=== PATIENT | female | born 1940 | race Caucasian/White ===

== ENCOUNTER → 2017-02-17 | Outpatient (CLI) | payer MEDICARE, BC ==
[2017-02-17 08:58] LABS: CH 29.6; CHCM 33.3; HCT 52.2 % (34.0-46.0); HDW 2.62; HGB 17.4 gm/dL (11.4-16.0); MCH 29.8 pg (25.0-35.0); MCHC 33.3 g/dL (31.0-37.0); MCV 89.4 fL (80.0-100.0); RBC 5.84 m/uL (3.80-5.40); RDW 13.7 % (11.5-15.5); WBC 5.4 k/uL (3.8-10.6)
[2017-02-17 10:45] LABS: ALT 48 U/L (9-52); AST 44 U/L (14-36); Alkaline Phosphatase 67 U/L (38-126); Anion Gap 9 mmol/L; Blood Urea Nitrogen 15 mg/dL (7-17); Calcium 9.6 mg/dL (8.4-10.2); Carbon Dioxide 25 mmol/L (22-30); Chloride 106 mmol/L (98-107); Cholesterol 222 mg/dL (<200); Glucose 92 mg/dL (74-99); HDL Cholesterol 73 mg/dL (40-60); Non-African American GFR(MDRD) >60 (>60 ml/min/1.73 sqM); Potassium 4.5 mmol/L (3.5-5.1); Sodium 140 mmol/L (137-145); Total Bilirubin 0.9 mg/dL (0.2-1.3); Total Protein 7.6 g/dL (6.3-8.2); Triglycerides 135 mg/dL (<150)
== END | disposition home or self-care (01) ==
LOC: LABWHC1 08:17
PROVIDERS: ATTEND Internal Medicine
DX: Z00.00 Encounter for general adult medical examination without abnormal findings (principal); I10 Essential (primary) hypertension; Z13.220 Encounter for screening for lipoid disorders; Z13.29 Encounter for screening for other suspected endocrine disorder
CPT/HCPCS: 36415; 80053; 80061; 84439; 84443; 85027

== ENCOUNTER → 2017-03-23 | Outpatient (CLI) | payer MEDICARE, BC ==
[2017-03-23 14:34] LABS: CH 29.3; HCT 46.8 % (34.0-46.0); HDW 2.52; HGB 15.1 gm/dL (11.4-16.0); MCH 29.7 pg (25.0-35.0); MCHC 32.2 g/dL (31.0-37.0); MCV 92.2 fL (80.0-100.0); Mean Platelet Volume 7.3; RBC 5.08 m/uL (3.80-5.40); RDW 13.6 % (11.5-15.5); WBC 6.9 k/uL (3.8-10.6)
[2017-03-23 15:00] LABS: ALT 29 U/L (9-52); AST 36 U/L (14-36)
== END | disposition home or self-care (01) ==
LOC: LABWHC1 14:05
PROVIDERS: ATTEND Internal Medicine
DX: D75.1 Secondary polycythemia (principal)
CPT/HCPCS: 36415; 84450; 84460; 85027

== ENCOUNTER → 2018-02-23 | Outpatient (CLI) | payer MEDICARE, BC ==
[2018-02-23 08:56] LABS: Basophils % (A) 1 %; Eosinophils # (A) 0.1 k/uL (0-0.7); Eosinophils % (A) 2 %; HCT 46.8 % (34.0-46.0); Lymphocytes # (A) 1.6 k/uL (1.0-4.8); Lymphocytes % (A) 26 %; MCH 28.3 pg (25.0-35.0); MCV 88.5 fL (80.0-100.0); Mean Platelet Volume 7.6; Monocytes # (A) 0.4 k/uL (0-1.0); Monocytes % (A) 6 %; Neutrophils # (A) 3.9 k/uL (1.3-7.7); Neutrophils % (A) 64 %; Platelet Count 218 k/uL (150-450); RBC 5.28 m/uL (3.80-5.40); WBC 6.2 k/uL (3.8-10.6)
[2018-02-23 09:21] LABS: ALT 28 U/L (9-52); AST 26 U/L (14-36); Albumin 3.9 g/dL (3.5-5.0); Alkaline Phosphatase 69 U/L (38-126); Anion Gap 10 mmol/L; Blood Urea Nitrogen 16 mg/dL (7-17); Calcium 9.4 mg/dL (8.4-10.2); Carbon Dioxide 28 mmol/L (22-30); Chloride 104 mmol/L (98-107); Cholesterol 190 mg/dL (<200); Glucose 94 mg/dL (74-99); HDL Cholesterol 68 mg/dL (40-60); LDL Cholesterol,Calculated 98 mg/dL (0-99); Potassium 4.3 mmol/L (3.5-5.1); Sodium 142 mmol/L (137-145); Total Bilirubin 0.6 mg/dL (0.2-1.3); Total Protein 6.6 g/dL (6.3-8.2); Triglycerides 120 mg/dL (<150)
[2018-02-23 09:37] LABS: T4, Free (Free Thyroxine) 1.28 ng/dL (0.78-2.19)
== END | disposition home or self-care (01) ==
LOC: LABWHC1 08:17
PROVIDERS: ATTEND Internal Medicine
DX: Z00.00 Encounter for general adult medical examination without abnormal findings (principal); I10 Essential (primary) hypertension; Z13.228 Encounter for screening for other metabolic disorders; Z13.29 Encounter for screening for other suspected endocrine disorder; Z13.220 Encounter for screening for lipoid disorders
CPT/HCPCS: 36415; 80053; 80061; 84439; 84443; 85025

== ENCOUNTER → 2018-04-17 | Outpatient (CLI) | payer MEDICARE, BC ==
[2018-04-17 11:40] LABS: T4, Free (Free Thyroxine) 1.06 ng/dL (0.78-2.19)
== END | disposition home or self-care (01) ==
LOC: LABWHC1 10:33
PROVIDERS: ATTEND Internal Medicine
DX: E03.9 Hypothyroidism, unspecified (principal)
CPT/HCPCS: 36415; 84439; 84443

== ENCOUNTER → 2019-02-26 | Outpatient (CLI) | payer MEDICARE, BC ==
[2019-02-26 09:42] LABS: Basophils # (A) 0.1 k/uL (0-0.2); Basophils % (A) 1 %; Eosinophils # (A) 0.1 k/uL (0-0.7); Eosinophils % (A) 2 %; HCT 47.8 % (34.0-46.0); HGB 16.1 gm/dL (11.4-16.0); Lymphocytes # (A) 1.3 k/uL (1.0-4.8); Lymphocytes % (A) 22 %; MCH 30.1 pg (25.0-35.0); MCHC 33.7 g/dL (31.0-37.0); MCV 89.4 fL (80.0-100.0); Mean Platelet Volume 9.4; Monocytes # (A) 0.5 k/uL (0-1.0); Monocytes % (A) 8 %; Neutrophils # (A) 3.6 k/uL (1.3-7.7); Neutrophils % (A) 64 %; Platelet Count 196 k/uL (150-450); RBC 5.35 m/uL (3.80-5.40); RDW 14.5 % (11.5-15.5); WBC 5.6 k/uL (3.8-10.6)
[2019-02-26 16:19] LABS: Albumin 4.1 g/dL (3.80-4.90); Albumin/Globulin Ratio 1.86 (1.60-3.17); Anion Gap 8.6 mmol/L (4.00-12.00); Calcium 8.9 mg/dL (8.7-10.3); Carbon Dioxide 25.4 mmol/L (21.6-31.8); Globulin 2.2 g/dL (1.6-3.3); LDL Cholesterol,Calculated 119.4 mg/dL (0.0-131.0); Potassium 4.2 mmol/L (3.5-5.5); Total Bilirubin 0.6 mg/dL (0.2-1.2); Total Protein 6.3 g/dL (6.2-8.2); VLDL Calculation 16.6 mg/dL (5.00-40.00)
== END | disposition home or self-care (01) ==
LOC: LABWHC1 07:30
PROVIDERS: ATTEND Internal Medicine
DX: Z00.01 Encounter for general adult medical examination with abnormal findings (principal); I10 Essential (primary) hypertension; Z13.220 Encounter for screening for lipoid disorders
CPT/HCPCS: 36415; 80053; 80061; 85025

== ENCOUNTER → 2021-03-27 | Outpatient (CLI) | payer MEDICARE, BC ==
--- NOTE | 2021-03-27 10:40 | XR ---
EXAM TYPE: LUMBAR SPINE X RAY SERIES COMPARISON: NONE HISTORY: Pain TECHNIQUE: 4 views are submitted. FINDINGS: Alignment is anatomic. The pedicles are intact. The transverse processes are intact. There is mult ilevel degenerative disc disease most marked at L4-5 with multilevel facet arthropathy. Grade 1 anter olisthesis L4 on L5. IMPRESSION: 1. Multilevel moderate to severe degenerative disc disease with grade 1 anterolisthesis L4 on L5.
[2021-03-27 14:42] LABS: Basophils # (A) 0.07 X 10*3/uL (0.00-0.10); Basophils % (A) 0.9 %; Eosinophils % (A) 1.3 %; HCT 48.5 % (37.2-46.3); HGB 15.4 g/dL (12.0-15.0); Lymphocytes % (A) 27.7 %; MCH 29.1 pg (27.0-32.0); MCHC 31.8 g/dL (32.0-37.0); MCV 91.7 fL (80.0-97.0); Mean Platelet Volume 10.6 fL (9.5-12.2); Monocytes # (A) 0.69 X 10*3/uL (0.20-1.00); Monocytes % (A) 9.1 %; Neutrophils # (A) 4.62 X 10*3/uL (1.80-7.70); Neutrophils % (A) 60.9 %; Platelet Count 206 X 10*3/uL (140-440); RBC 5.29 X 10*6/uL (4.10-5.20); RDW 13.7 % (11.5-14.5); WBC 7.59 X 10*3/uL (4.50-10.00)
[2021-03-27 17:44] LABS: African American GFR (CKD) 99.8 (60.0-200.0); Albumin 4.2 g/dL (3.80-4.90); Albumin/Globulin Ratio 1.75 (1.60-3.17); BUN/Creat Ratio 26.67 Ratio (12.00-20.00); Globulin 2.4 g/dL (1.6-3.3); Non-African American GFR(CKD) 86.1 (60.0-200.0); Potassium 4.2 mmol/L (3.5-5.5); Total Bilirubin 0.7 mg/dL (0.2-1.2); Total Protein 6.6 g/dL (6.2-8.2)
[2021-03-27 17:45] LABS: Chol/HDL Ratio 2.98; LDL Cholesterol,Calculated 100.6 mg/dL (0.0-131.0); VLDL Calculation 22.4 mg/dL (5.00-40.00)
== END | disposition home or self-care (01) ==
LOC: LABWHC1 09:34
PROVIDERS: ATTEND Internal Medicine
DX: Z00.01 Encounter for general adult medical examination with abnormal findings (principal); Z13.220 Encounter for screening for lipoid disorders; I10 Essential (primary) hypertension; R94.6 Abnormal results of thyroid function studies; M51.36 Other intervertebral disc degeneration, lumbar region; M43.16 Spondylolisthesis, lumbar region
CPT/HCPCS: 36415; 72110; 80053; 80061; 82306; 84443; 85025

== ENCOUNTER → 2021-08-07 | Outpatient (CLI) | payer MEDICARE, BC ==
--- NOTE | 2021-08-07 17:00 | US ---
EXAMINATION TYPE: US pelvic complete DATE OF EXAM: 08/07/2021 COMPARISON: NONE CLINICAL HISTORY: N95.0 POSTMENOPAUSAL BLEEDING. Pt states recent episode of light vaginal bleeding- pt also states recent diagnosis of UTI, currently on antibiotics TECHNIQUE: Transabdominal (TA). Transabdominal sonographic images of the pelvis were acquired. Date of LMP: late 50's EXAM MEASUREMENTS: Uterus: 7.4 x 3.1 x 4.7 cm Endometrial Stripe: 0.4 cm Right Ovary: 1.8 x 0.9 x 1.6 cm Left Ovary: 1.5 x 1.3 x 1.5 cm 1. Uterus: Anteverted Heterogeneous, peripheral calcifications, Nabothian cyst= 1.1 cm 2. Endometrium: wnl 3. Right Ovary: wnl 4. Left Ovary: wnl 5. Bilateral Adnexa: wnl 6. Posterior cul-de-sac: wnl IMPRESSION: Uterine myometrium is heterogenous with peripheral calcification seen which may reflect small leiomyo matous change.
== END | disposition home or self-care (01) ==
LOC: RADUSWWP 16:15
PROVIDERS: ATTEND Internal Medicine
DX: N85.8 Other specified noninflammatory disorders of uterus (principal)
CPT/HCPCS: 76856

== ENCOUNTER → 2021-09-07 | Outpatient (CLI) | payer MEDICARE, BC ==
--- NOTE | 2021-09-07 15:15 | US ---
EXAMINATION TYPE: US transvaginal DATE OF EXAM: 09/07/2021 COMPARISON: 08/07/2021 CLINICAL HISTORY: 81-year-old female N95.0 POST MENOPAUSAL BLEEDING. Light brown spotting. TECHNIQUE: Transvaginal (TV). Date of LMP: REVENUE ACCOUNTING MANAGER FINDINGS: EXAM MEASUREMENTS: Uterus: 5.4 x 4.0 x 2.0 cm Endometrial Stripe: 0.2 cm 1. Uterus: Anteverted. Extensive myometrial vascular calcifications. 2. Endometrium: wnl 3. Right Ovary: Obscured by overlying bowel gas 4. Left Ovary: Obscured by overlying bowel gas 5. Bilateral Adnexa: Prominent vessels seen 6. Posterior cul-de-sac: no free fluid seen 7. Cervix- hypoechoic lesion with internal echoes = 1.2 x 1.2 x 0.7 cm likely debris-filled cervical nabothian cyst. IMPRESSION: 1. Neither ovary could be visualized. 2. Endometrial stripe measuring 2 mm. 3. Hypoechoic lesion within the cervix measuring 1.2 cm most likely represents a cervical nabothian c yst filled with debris. Consider either follow-up, direct visualization and/or Pap smear to exclude o ther lesion.
== END | disposition home or self-care (01) ==
LOC: RADUSWWP 10:07
PROVIDERS: ATTEND Internal Medicine
DX: N88.8 Other specified noninflammatory disorders of cervix uteri (principal); N95.0 Postmenopausal bleeding
CPT/HCPCS: 76830

== ENCOUNTER → 2023-02-01 | Outpatient (CLI) | payer MEDICARE, BC ==
[2023-02-01 10:34] LABS: Basophils % (A) 0 %; Eosinophils # (A) 0.1 k/uL (0-0.7); Eosinophils % (A) 2 %; HCT 50.3 % (34.0-46.0); HGB 16.8 gm/dL (11.4-16.0); Lymphocytes # (A) 1.4 k/uL (1.0-4.8); Lymphocytes % (A) 20 %; MCH 30.1 pg (25.0-35.0); MCHC 33.4 g/dL (31.0-37.0); MCV 90.2 fL (80.0-100.0); Mean Platelet Volume 9.1; Monocytes # (A) 0.4 k/uL (0-1.0); Monocytes % (A) 6 %; Neutrophils % (A) 70 %; Platelet Count 194 k/uL (150-450); RBC 5.58 m/uL (3.80-5.40); RDW 13.7 % (11.5-15.5); WBC 7.1 k/uL (3.8-10.6)
[2023-02-01 16:47] LABS: African American GFR (CKD) 95.1 (60.0-200.0); Anion Gap 11.6 mmol/L (10.00-18.00); BUN/Creat Ratio 13.41 Ratio (12.00-20.00); Blood Urea Nitrogen 8.9 mg/dL (9.0-27.0); Calcium 9.5 mg/dL (8.7-10.3); Carbon Dioxide 24.3 mmol/L (20.0-27.5); Non-African American GFR(CKD) 82.1 (60.0-200.0); Potassium 4.6 mmol/L (3.5-5.5)
== END | disposition home or self-care (01) ==
LOC: LABWHC1 08:23
PROVIDERS: ATTEND Internal Medicine
DX: Z01.810 Encounter for preprocedural cardiovascular examination (principal); R94.31 Abnormal electrocardiogram [ECG] [EKG]
CPT/HCPCS: 36415; 80048; 85025; 93005

== ENCOUNTER → 2023-04-20 | Outpatient (CLI) | payer MEDICARE, BC ==
[2023-04-20 16:21] LABS: ALT 23 U/L (8-44); AST 21 U/L (13-35); Albumin 4.1 d/dL (3.8-4.9); Albumin/Globulin Ratio 1.78 Ratio (1.60-3.17); Alkaline Phosphatase 76 U/L (41-126); Blood Urea Nitrogen 11.1 mg/dL (9.0-27.0); Calcium 9.4 mg/dL (8.7-10.3); Carbon Dioxide 23.7 mmol/L (21.6-31.8); Chloride 103 mmol/L (96-109); Chol/HDL Ratio 2.54 Ratio; Globulin 2.3 d/dL (1.6-3.3); Glucose 112 mg/dL (70-110); LDL Cholesterol,Calculated 83.4 mg/dL (0.0-131.0); Potassium 4.4 mmol/L (3.5-5.5); Sodium 139 mmol/L (135-145); Total Bilirubin 0.5 mg/dL (0.3-1.2); Total Protein 6.4 d/dL (6.2-8.2)
== END | disposition home or self-care (01) ==
LOC: LABWHC1 07:57
PROVIDERS: ATTEND Internal Medicine
DX: Z13.220 Encounter for screening for lipoid disorders (principal); I10 Essential (primary) hypertension; E55.9 Vitamin D deficiency, unspecified; R94.6 Abnormal results of thyroid function studies
CPT/HCPCS: 36415; 80053; 80061; 82306; 84443

== ENCOUNTER → 2023-10-03 | Outpatient (CLI) | payer MEDICARE, BC ==
--- NOTE | 2023-10-04 10:28 | MR ---
EXAMINATION TYPE: MR shoulder LT wo con DATE OF EXAM: 10/03/2023 COMPARISON: Left shoulder radiograph 08/18/2023 HISTORY: Lt shoulder pain TECHNIQUE: Multiplanar, multisequence imaging of the left shoulder is performed without contrast. FINDINGS: SUPRASPINATUS: Complete full-thickness tear of the supraspinatus measuring 2.5 cm in AP dimension and 2.1 cm in mediolateral dimension. INFRASPINATUS: Intact. SUBSCAPULARIS: Partial-thickness intrasubstance tearing of the cranial fibers of the subscapularis. TERES MINOR: Intact. BICEPS: Intact. The intra-articular long head biceps tendon is increased in signal, relating to tendi nosis.. Normal anchor in the supraglenoid tubercle. Extra-articular portion is appropriately position ed within the bicipital groove. GLENOHUMERAL JOINT: High-grade thinning of the glenohumeral articular cartilage. Large glenohumeral j oint effusion. ACROMIOCLAVICULAR JOINT: Mild capsular hypertrophy and osteophytic spurring. Normal subacromial space . No joint effusion. LABRUM: Normal, given the limitations of a non-arthrographic exam. SUBDELTOID BURSA: Small amount of fluid within the subdeltoid bursa secondary to the full-thickness r otator cuff tear. MUSCLES: Normal. BONE MARROW: Normal. OTHER: No additional significant abnormality is appreciated. IMPRESSION: 1. Supraspinatus full-thickness tear. 2. Intrasubstance tear subscapularis. 3. Intra-articular long head biceps tendinosis. 3. Advanced glenohumeral osteoarthrosis.
== END | disposition home or self-care (01) ==
LOC: RADMRIMAIN 10:45
PROVIDERS: ATTEND Orthopaedic Surgery
DX: M19.012 Primary osteoarthritis, left shoulder (principal); M75.112 Incomplete rotator cuff tear or rupture of left shoulder, not specified as traumatic

== ENCOUNTER → 2023-12-02 | Outpatient (CLI) | payer MEDICARE, BC ==
[2023-12-02 19:41] LABS: Basophils # (A) 0.08 X 10*3/uL (0.00-0.10); Eosinophils # (A) 0.08 X 10*3/uL (0.04-0.35); HCT 48.2 % (37.2-46.3); HGB 15.9 g/dL (12.0-15.0); Lymphocytes # (A) 2.07 X 10*3/uL (0.90-5.00); Lymphocytes % (A) 26.7 %; MCV 87.8 FL (80.0-97.0); Mean Platelet Volume 11.8 FL (9.5-12.2); Monocytes # (A) 0.71 X 10*3/uL (0.20-1.00); Monocytes % (A) 9.1 %; NRBC Per 100 WBC 0 X 10*3/uL (0.00-0.01); Neutrophils # (A) 4.79 X 10*3/uL (1.80-7.70); Neutrophils % (A) 61.8 %; Platelet Count 128 X 10*3/uL (140-440); RBC 5.49 X 10*6/uL (4.10-5.20); RBC Morphology Normal (Normal); WBC 7.76 X 10*3/uL (4.50-10.00)
[2023-12-02 21:12] LABS: ALT 20 U/L (8-44); AST 40 U/L (13-35); Albumin 4.1 g/dL (3.8-4.9); Albumin/Globulin Ratio 1.64 Ratio (1.60-3.17); Alkaline Phosphatase 74 U/L (41-126); BUN/Creat Ratio 22.12 Ratio (12.00-20.00); Blood Urea Nitrogen 17.7 mg/dL (9.0-27.0); Calcium 9.6 mg/dL (8.7-10.3); Carbon Dioxide 21.4 mmol/L (21.6-31.8); Chloride 102 mmol/L (96-109); Globulin 2.5 g/dL (1.6-3.3); Glucose 129 mg/dL (70-110); Potassium 5.1 mmol/L (3.5-5.5); Sodium 136 mmol/L (135-145); Total Bilirubin 0.2 mg/dL (0.3-1.2); Total Protein 6.6 g/dL (6.2-8.2)
[2023-12-02 23:17] LABS: INR 1.28 sec (0.93-1.11); Prothrombin Time 13.6 sec (9.9-11.9)
== END | disposition home or self-care (01) ==
LOC: LABWHC1 13:33
PROVIDERS: ATTEND Internal Medicine
DX: Z01.810 Encounter for preprocedural cardiovascular examination (principal); I10 Essential (primary) hypertension
CPT/HCPCS: 36415; 80053; 85025; 85610

== ENCOUNTER 2023-12-13 05:44 | Day surgery (SDC) | payer MEDICARE, BC ==
--- NOTE | 2023-12-12 08:03 | P.HPOR ---
History of Present Illness H&P Date: 12/12/23 Chief Complaint: Left shoulder pain and weakness The patient is an 83-year-old female who presents with progressive left shoulder pain and weakness. She underwent attempted rotator cuff repair earlier last year. She had adequate postoperative rehabilitation with no improvement in her symptoms. She is having pain with any attempted overhead use and at night. Review of Systems As per HPI Past Medical History Past Medical History: Cancer, Hypertension, Osteoarthritis (OA) Additional Past Medical History / Comment(s): hx breast cancer 1999(chemo) History of Any Multi-Drug Resistant Organisms: None Reported Past Surgical History: Breast Surgery, Heart Catheterization, Orthopedic Surgery, Tubal Ligation Additional Past Surgical History / Comment(s): rt shoulder repair, removal of benign tumor off thyroid,removed /. left sided lumpectomy and lymph nodes removed. rt knee arthroscopy Additional Past Anesthesia/Blood Transfusion Reaction / Comment(s): sensitive to anesthesia - a little goes a long way. very hard iv start "chemo veins". daughter is sensitive to anesthesia Smoking Status: Never smoker - Past Family History Father Family Medical History: Cancer Sister(s) Family Medical History: Cancer, Diabetes Mellitus Mother Family Medical History: Diabetes Mellitus Brother(s) Family Medical History: Deep Vein Thrombosis (DVT) Medications and Allergies Home Medications Medication Instructions Recorded Confirmed Type amLODIPine [Norvasc] 10 mg PO TUTHSA 02/14/23 12/07/23 History atenoloL [Tenormin] 25 mg PO MOWEFR 02/14/23 12/07/23 History Unk Selenium 1 tab PO DAILY 12/07/23 12/07/23 History Unk Chromium Picolinate 1 tab PO DAILY 12/07/23 12/07/23 History Unk Complex B 1 tab PO DAILY 12/07/23 12/07/23 History Unk Kelp 1 tab PO DAILY 12/07/23 12/07/23 History Allergies Allergy/AdvReac Type Severity Reaction Status Date / Time Sulfa (Sulfonamide Allergy Rash/Hives Verified 12/07/23 12:56 Antibiotics) codeine AdvReac Nausea & Verified 12/07/23 12:56 Vomiting Physical Examination - Shoulder left Appearance: effusion Tenderness with palpation: anterior, bicipital groove ROM: forward flexion: 80 degrees (Actively, 130 passively) ROM: internal rotation: lower lumbar ROM: external rotation: 40 degrees Crepitus with motion: Yes Strength: abduction: 4/5 Strength: external rotation: 4/5 Tests: internal impingement tests: positive, external impingment tests: positive Results Patient is a well-developed well-nourished female proximal 5 foot 2, 140 pounds of mesomorphic habitus. HEENT exam is nonfocal, neck is supple. She is tender diffusely over the left anterior glenohumeral joint. She has moderate crepitus. Castro, Neer sign, and speed test are positive. Her distal neurovascular otherwise appears to be intact in the left upper extremity. - Diagnostic results Shoulder MRI: image reviewed (MRI of the left shoulder shows evidence of a retracted rotator cuff tear along with severe arthropathy.) Assessment and Plan Assessment: Left rotator cuff arthropathy History of left rotator cuff repair with re-tear Plan: I talked to the patient at length regarding her condition along with treatment options. At this point she is quite symptomatic having both pain and weakness despite attempted conservative measures. After thorough discussion she opted to proceed with surgery. We'll plan to proceed with left reverse total shoulder arthroplasty. Risks and benefits were discussed at length in layman's terms. We will likely keep the patient for 23 hour hold postoperatively.
[~2023-12-13 05:44] MED LIST: TRANEXAMIC 1,000 MG/100ML-NACL 1,000 MG in SALINE 1 100ML.BAG IVPB PRN
[2023-12-13] MEDS: LACTATED RINGERS 1,000 ML IV SCH (06:24)
[2023-12-13] MEDS: ACETAMINOPHEN TAB 500 MG TAB PO PRN (06:38)
[2023-12-13] MEDS: DEXAMETHASONE SOD PHOSPHATE 4 MG/ML 1 ML VIAL IV ONE (06:38)
[2023-12-13] MEDS: MELOXICAM 7.5 MG TAB PO PRN (06:38)
[2023-12-13] MEDS: ONDANSETRON 4 MG/2 ML VIAL IVP ONE (06:39)
[2023-12-13] MEDS: MIDAZOLAM 2 MG/2 ML VIAL IVP ONE (06:43)
[2023-12-13] MEDS: fentaNYL (PF) 50 MCG/1 ML VIAL IVP ONE (06:43)
[2023-12-13] MEDS ORDERED: HYDROmorphone 0.5 MG/0.5 ML SYRINGE IVP PRN ×3 (07:00→09:24)
[2023-12-13] MEDS ORDERED: ePHEDrine 50 MG/ML 1 ML VIAL ONE (07:29)
[2023-12-13] MEDS ORDERED: ROPIVACAINE 5 MG/ML 30 ML VIAL ONE (07:29)
[2023-12-13] MEDS ORDERED: ROCURONIUM 10 MG/ML (5 ML VIAL) IV ONE (07:29)
[2023-12-13] MEDS ORDERED: TRANEXAMIC 1,000 MG/100ML-NACL PREMIX BAG ONE (07:29)
[2023-12-13] MEDS ORDERED: PROPOFOL 10 MG/ML 20 ML VIAL IV ONE (07:29)
[2023-12-13] MEDS ORDERED: fentaNYL (PF) 50 MCG/ML 2 ML AMP ONE (07:29)
[2023-12-13] MEDS ORDERED: LIDOCAINE 1% INJ 10MG/ML (20 ML MDV) ONE (07:29)
[2023-12-13] MEDS ORDERED: PHENYLEPHRINE 10 MG/ML VIAL ONE (07:29)
[2023-12-13] MEDS ORDERED: NEOSTIGMINE 1 MG/ML 10 ML VIAL ONE (07:29)
[2023-12-13] MEDS ORDERED: GLYCOPYRROLATE 0.2 MG/ML 2 ML VIAL ONE (07:29)
[2023-12-13] MEDS ORDERED: SUCCINYLCHOLINE CHLORIDE 200 MG/10 ML VIAL IV ONE (07:29)
[2023-12-13] MEDS: ceFAZolin 1,000 MG in SODIUM CHLORIDE 0.9% 1,000 ML IRRIGATION ONE (08:02)
[2023-12-13] MEDS: LACTATED RINGERS 1,000 ML IV ONE (09:11)
[2023-12-13] MEDS ORDERED: SENNOSIDES-DOCUSATE SODIUM 1 EACH TAB PO PRN (09:24)
--- NOTE | 2023-12-13 09:44 | P.OP ---
Date of Procedure: 12/13/23 Preoperative Diagnosis: Left rotator cuff arthropathy Postoperative Diagnosis: Same Procedure(s) Performed: Left reverse total shoulder arthroplasty Implants: Depuy Delta Xtend size 8 cemented humeral stem, size 1 body, 38+3 articular surface, 38 mm standard glenosphere with standard baseplate. Anesthesia: [facility] Surgeon: Azam Marshall Auricular Acupuncturist #1: Salvador Gaitan Estimated Blood Loss (ml): 100 Pathology: none sent Condition: stable Disposition: PACU Indications for Procedure: The patient is an 83-year-old female who presents with progressive left shoulder pain and weakness as noted by MRI to have a chronic retracted rotator cuff tear despite conservative measures. A discussion of the risks and benefits of operative intervention versus continued conservative measures was made with patient. She opted to proceed with surgery. Operative versus to include infection, neurovascular injury, fracture, possible component loosening, possible instability and need for subsequent procedures was discussed. Informed consent was obtained. Operative Findings: As below Description of Procedure: The patient was brought to the operating room, and after induction of general anesthesia was placed in a beachchair position. The bony prominences were appropriately padded. I examined the left shoulder. There was moderate lack of passive forward elevation and external rotation. The left upper extremity was prepped and draped in normal fashion. The bony outlines the coracoid process, distal clavicle, and acromion were outlined with a skin marker. A pulse centimeter deltopectoral incision was made lateral to the coracoid process. Skin was incised sharply. Subcutaneous tissues were divided bluntly. Electrocautery was used for hemostasis. The cephalic vein was identified and gently retracted laterally with the deltoid. The deltopectoral was bluntly developed. Subdeltoid adhesions were then released. The self-retaining retractor was placed. The conjoined tendon was retracted medially and the deltoid laterally. The biceps was identified. Its sheath was opened. A biceps tenotomy was performed along the remaining tendon did retract distally. The subscapularis peel was performed and the subscapularis was tagged with #2 Ethibond suture. The head was then exposed. The shoulder was dislocated. A starting hole was made in line with the humeral shaft. The canal was reamed by hand up to size 8. There was good distal chatter. The cutting guide was then placed. I planned on 20 of retroversion. The humeral head cut was then made. The bone was removed in one fragment. Residual inferomedial osteophytes were removed flush with the [place] cortical bone. Attention was then paid towards preparing the glenoid. An anterior and posterior retractors placed. The labrum was released from the 6-12 o'clock position. Remaining biceps was removed as well. A guidepin was placed in the inferior aspect of the glenoid with the guide slightly tilting inferior. The reamer was used down to a bleeding bony surface. The central peg hole was drilled. The standard baseplate was inserted with good purchase. Inferior, superior, and posterior locking screws the appropriate length were placed. Good purchase was obtained. The 38 mm glenosphere was inserted over a guidewire. This was fully seated. Care was taken to avoid any soft tissue interposition. Attention was then paid towards preparing the proximal humerus. The appropriate broach was placed and 20 of retroversion and was fully seated. An eccentric size 1 epiphyseal reamer was utilized. A size 8 stem with a size 1 epiphysis was placed and 20 of retroversion. Trial reduction was obtained with a 38 mm + 3 articular surface. The shoulder was taken through range of motion. Her shoulder was felt to be stable in flexion and extension with internal and external rotation. I felt there was adequate synagogue of soft tissue tension judging off the conjoined tendon. The shoulder was gently dislocated. The trial components were then removed. The final size 8 cemented stem along with a size 1 epiphysis was fully seated. There was good rotational stability. The 38 mm + 3 articular surface was impacted. The shoulder again was gently reduced and taken through range of motion. Again it was felt to be stable in all planes. Pulsatile lavage was utilized. The subscapularis was a attached to the lesser tuberosity with #2 Ethibond suture. The deltopectoral interval was closed with interrupted 2-0 Vicryl sutures. The skin was reapproximated with 3-0 subcuticular Prolene suture. Steri-Strips were applied. A sterile dressing was applied. A sling was placed. The patient was awoken from general anesthesia and transferred to recovery room in good condition. Blood loss was estimated at 100 mL. No complications were incurred. Sponge and needle counts were correct at the end the case. Salvador KILPATRICK assisted during the major components of the case to include exposure, glenoid and humeral preparation, implantation, and closure.
--- NOTE | 2023-12-13 10:14 | P.ANPRN ---
Procedure Note - Anesthesia - Nerve Block Performed Left Interscalene Single Time Out Performed: Yes ([id number]) Date of Procedure: 12/13/23 Procedure Start Time: 06:43 Procedure Stop Time: 06:47 Location of Patient: PreOp Indication: Acute Post-Operative Pain, Requested by Surgeon Specifically requested for management of pain by : Azam Marshall Sedation Type: Sedate with meaningful contact maintained Preparation: Sterile Prep Position: Supine Catheter: None Needle Types: Pajunk Needle Gauge: 21 Ultrasound used to visualize needle placement: Yes Ultrasound used to observe medication spread: Yes Injectate: 0.5% Ropivacaine (see comment for volume) (30cc) Blood Aspirated: No Pain Paresthesia on Injection Noted: No Resistance on Injection: Normal Image Stored and Saved: Yes Events: Uneventful and Well Tolerated
--- NOTE | 2023-12-13 10:18 | XR ---
EXAMINATION TYPE: XR shoulder limited LT DATE OF EXAM: 12/13/2023 10:04 AM CLINICAL INDICATION:Female, 83 years old with history of s/p reverse left total shoulder arthroplasty ; [facility] COMPARISON: 10/03/2023. TECHNIQUE: XR shoulder limited LT; examined in AP, internally rotated and scapular Y projections. FINDINGS: Shoulder arthroplasty with hardware intact. Subcutaneous lucencies compatible with recent surgery. No evidence for fracture. Hardware appears in tact The remaining portions of the visualized chest are unremarkable. IMPRESSION: Postsurgical changes with hardware intact.
[2023-12-13 16:48] LABS: Basophils % (A) 0 %; Eosinophils # (A) 0.1 k/uL (0-0.7); Eosinophils % (A) 0 %; HCT 45.3 % (34.0-46.0); HGB 14.6 gm/dL (11.4-16.0); Lymphocytes # (A) 0.6 k/uL (1.0-4.8); Lymphocytes % (A) 4 %; MCH 29.2 pg (25.0-35.0); MCHC 32.2 g/dL (31.0-37.0); MCV 90.8 fL (80.0-100.0); Mean Platelet Volume 8.5; Monocytes # (A) 0.4 k/uL (0-1.0); Monocytes % (A) 3 %; Neutrophils # (A) 13.2 k/uL (1.3-7.7); Neutrophils % (A) 93 %; Platelet Count 181 k/uL (150-450); RBC 4.99 m/uL (3.80-5.40); RDW 13.8 % (11.5-15.5); WBC 14.3 k/uL (3.8-10.6)
[2023-12-13] MEDS: HYDROcodone/APAP 5-325MG 1 EACH TAB PO PRN (19:29)
[2023-12-13] MEDS: hydrOXYzine pamoate 25 MG CAP PO PRN (23:29)
[2023-12-14] MEDS: HYDROcodone/APAP 5-325MG 1 EACH TAB PO PRN (00:49)
[2023-12-14 07:41] VITALS: BP 145/76; PULSE 76; RESP 18; TEMP 97.6
--- NOTE | 2023-12-14 10:26 | P.DS ---
Providers Date of admission: 12/13/2023 Expected date of discharge: 12/14/23 Attending physician: Azam Marshall Consults: 12/13/23 09:24 Consult Physician Routine Consulting Provider: Markell Ramirez Consult Reason/Comments: medical management s/p reverse left total shoulder arthroplasty Do you want consulting provider notified?: Yes Primary care physician: Yennifer Seth Hospital Course: Date of admission: 12/13/2023 Date of discharge: 12/14/2023 Admission diagnosis: Left shoulder rotator cuff arthropathy Discharge diagnosis: Same Attending physician: Dr. Marshall Surgical procedures: Reverse left total shoulder arthroplasty Brief history: Patient is a 9-year-old female with a history of with left shoulder rotator cuff arthropathy. At this point patient has failed conservative treatment measures and has opted to proceed with a elective reverse left total shoulder arthroplasty. Hospital course: Details of patient's surgery can be found in operative report. Patient tolerated the procedure well and was subsequently transported to orthopedic floor. Patient's orthopeidc and medical care was provided daily. Patient had daily laboratory tests performed for evaluation of overall blood counts. Patient had daily physical therapy to include strengthening range of motion as well as education with walker ambulation. Patient was treated with Xarelto for their postoperative DVT prophylaxis during their inpatient stay. Patient was noted to have a relatively uneventful postoperative course. Patient reported satisfactory pain control with oral pain medications by postoperative day 1. Patient showed satisfactory progress with physical therapy. Patient moved steadily through the program and had no difficulty meeting the goals by postoperative day 1. Given patient's otherwise satisfactory course and having met physical therapy goals, plan is to discharge patient home on postoperative day 1. Discharge condition/disposition: Patient will be discharged home in stable condition. Discharge medications: Instructions are given on resumption of patient's normal daily medications per primary care recommendation, in addition patient will be prescribed [place]; senna; aspirin 325 mg daily 30 days. Orthopedic Discharge Instructions: 1. Wound care and infection precautions, keep incision dry and covered while showering, no lotions, creams, moisturizers. No soaking, pools, hot tubs. Do not scrub over incision. 2. Nonweightbearing left upper extremity until follow-up. 3. Ice when necessary. Do not exceed 20 minutes per hour with ice pack. 4. Utilize sling to left upper extremity 5. Pain meds and anticoagulants per prescription. 6. Pain medication has potential to cause constipation. Increase oral fluid and fiber intake. Contact primary care provider if you have not had a bowel movement within 48 hours after discharge. 7. No anti-inflammatory medication until discussed at first post operative visit, this including Motrin, Aleve, Mobic, Diclofenac. 8. Follow up in office at 2 weeks postop with Gene Rivera PA-C / Salvador Gaitan PA-C 9. Follow up with your primary care doctor 7-10 days after discharge. 10. Contact [facility] with any questions, . Keep incision clean, dry, intact. While showering, cover incision with Saran wrap. Keep Steri-Strips on until follow-up appointment in office in 2 weeks Assessment: Left shoulder rotator cuff arthropathy Procedures: Reverse left total shoulder arthroplasty Patient Condition at Discharge: Good Plan - Discharge Summary Discharge Rx Participant: Yes New Discharge Prescriptions: No Action Unk Selenium 1 tab PO DAILY atenoloL [Tenormin] 25 mg PO MOWEFR amLODIPine [Norvasc] 10 mg PO TUTHSA Unk Kelp 1 tab PO DAILY Unk Complex B 1 tab PO DAILY Unk Chromium Picolinate 1 tab PO DAILY Discharge Medication List amLODIPine [Norvasc] 10 mg PO TUTHSA 02/14/23 [History] atenoloL [Tenormin] 25 mg PO MOWEFR 02/14/23 [History] Unk Selenium 1 tab PO DAILY 12/07/23 [History] Unk Chromium Picolinate 1 tab PO DAILY 12/07/23 [History] Unk Complex B 1 tab PO DAILY 12/07/23 [History] Unk Kelp 1 tab PO DAILY 12/07/23 [History] Follow up Appointment(s)/Referral(s): Salvador Gaitan, YANIRA [PHYSICIAN [employer]PL[employer] ELECTRICIAN] - 2 Weeks Patient Instructions/Handouts: Shoulder Arthroplasty (DC), Shoulder Arthroplasty (GEN) Activity/Diet/Wound Care/Special Instructions: Orthopedic Discharge Instructions: 1. Wound care and infection precautions, keep incision dry and covered while showering, no lotions, creams, moisturizers. No soaking, pools, hot tubs. Do not scrub over incision. 2. Nonweightbearing left upper extremity until follow-up. 3. Ice when necessary. Do not exceed 20 minutes per hour with ice pack. 4. Utilize sling to left upper extremity 5. Pain meds and anticoagulants per prescription. 6. Pain medication has potential to cause constipation. Increase oral fluid and fiber intake. Contact primary care provider if you have not had a bowel movement within 48 hours after discharge. 7. No anti-inflammatory medication until discussed at first post operative visit, this including Motrin, Aleve, Mobic, Diclofenac. 8. Follow up in office at 2 weeks postop with Gene Rivera PA-C / Salvador Gaitan PA-C 9. Follow up with your primary care doctor 7-10 days after discharge. 10. Contact [facility] with any questions, . Keep incision clean, dry, intact. While showering, cover incision with Saran wrap. Keep Steri-Strips on until follow-up appointment in office in 2 weeks Discharge Disposition: HOME SELF-CARE
--- NOTE | 2023-12-14 10:34 | P.PN ---
Subjective Progress Note Date: 12/14/23 Principal diagnosis: Left shoulder rotator cuff arthropathy Patient was seen at bedside this morning lying semirecumbent position with sling to left upper extremity and dressing over the shoulder. Patient says she is looking forward to going home later today. She says her will help her out at home. Patient says she has urinated without issue since surgery. Patient denies chest pain, fever, shortness of breath, nausea, vomiting, change in vision, loss of bowel/bladder control. Objective - Vital Signs Vital signs: Vital Signs Temp 97.6 F 12/14/23 07:33 Pulse 76 12/14/23 07:33 Resp 18 12/14/23 07:33 BP 145/76 12/14/23 07:33 Pulse Ox 96 12/14/23 07:33 FiO2 Intake & Output 12/13/23 12/14/23 12/14/23 18:59 06:59 18:59 Intake Total 1901 350 Output Total 100 Balance 1801 350 Weight 62.1 kg Intake: IV 1901 Oral 350 Output: Estimated Blood Loss 100 Other: Voiding Method Toilet # Voids 1 2 - Exam Left shoulder: Incision is clean, dry, and intact. The bulky dressing is in good condition. There is minimal soft tissue swelling and ecchymosis surrounding the medial and lateral aspects of the incision. Calf is soft, no tenderness with palpation. Plantar flexion, dorsiflexion, EHL, FHL are intact. Sensory exam to light touch throughout the extremity is intact, dorsal pedis pulses 2+. - Labs CBC & Chem 7: 12/13/23 16:14 12/13/23 06:22 Labs: Abnormal Lab Results - Last 24 Hours (Table) 12/13/23 Range/Units 16:14 WBC 14.3 H (3.8-10.6) k/uL Neutrophils # 13.2 H (1.3-7.7) k/uL Lymphocytes # 0.6 L (1.0-4.8) k/uL Assessment and Plan Assessment: 1. Left shoulder rotator cuff arthropathy - Postoperative day 1 status post reverse left total shoulder arthroplasty Plan: 1. Left shoulder rotator cuff arthropathy - reverse left total shoulder arthroplasty performed yesterday, 12/13/2023. Patient's stable at bedside this morning with sling to left upper extremity. Patient should be nonweightbearing to the left upper extremity. Discharge home today 2. Appreciate medical management 3. Pain management - norco 4. DVT prophylaxis - aspirin 325 mg daily x 30 days 5. GI prophylaxis - senna 6. PT/OT - NWB LUE. Maintain sling to LUE 7. Encourage incentive spirometer use 8. Discharge planning - home today Time with Patient: Less than 30
[2023-12-14] MEDS: ASPIRIN 325 MG TAB PO SCH (11:26)
[2023-12-14] MEDS: atenoloL 25 MG TAB PO SCH (11:50)
--- NOTE | 2023-12-14 13:23 | P.CONS ---
History of Present Illness - Reason for Consult Consult date: 12/14/23 medical manaagement Requesting physician: Salvador Gaitan - History of Present Illness This is a pleasant 83-year-old female with medical history significant for hypertension, breast cancer with lumpectomy on the left side status postchemotherapy in 1999. Patient is also had a cardiac catheterization which was clear and patient states that her chest pain was attributed to anxiety at that time. She has no other cardiac history. Patient is a never smoker. Presents to the hospital for a scheduled left shoulder arthroplasty. She is seen today at the bedside sitting up in the chair reports pain about a 7 out of 10 states that when she is receiving pain medication it is helping the pain. She has no numbness or tingling to her fingers. She has a soft sling in place. No chest pain or shortness of breath. She is anticipating discharge home today. She has resumed on home medications of atenolol and amlodipine as blood pressure is normotensive after surgery. REVIEW OF SYSTEMS: CONSTITUTIONAL: No fever, no malaise, no fatigue. HEENT: No recent visual problems or hearing problems. Denied any sore throat. CARDIOVASCULAR: No chest pain, orthopnea, PND, no palpitations, no syncope. PULMONARY: No shortness of breath, no cough, no hemoptysis. GASTROINTESTINAL: No diarrhea, no nausea, no vomiting, no abdominal pain. NEUROLOGICAL: No headaches, no weakness, no numbness. HEMATOLOGICAL: Denies any bleeding or petechiae. GENITOURINARY: Denies any burning micturition, frequency, or urgency. MUSCULOSKELETAL/RHEUMATOLOGICAL: Reports pain to the left shoulder ENDOCRINE: Denies any polyuria or polydipsia. The rest of the 14-point review of systems is negative. PHYSICAL EXAMINATION: GENERAL: The patient is alert and oriented x3, not in any acute distress. Well developed, well nourished. HEENT: Pupils are round and equally reacting to light. EOMI. No scleral icterus. No conjunctival pallor. Normocephalic, atraumatic. No pharyngeal erythema. No thyromegaly. CARDIOVASCULAR: S1 and S2 present. No murmurs, rubs, or gallops. PULMONARY: Chest is clear to auscultation, no wheezing or crackles. ABDOMEN: Soft, nontender, nondistended, normoactive bowel sounds. No palpable o rganomegaly. MUSCULOSKELETAL: No joint swelling or deformity. Left shoulder in soft sling. EXTREMITIES: No cyanosis, clubbing, or pedal edema. NEUROLOGICAL: Gross neurological examination did not reveal any focal deficits. SKIN: No rashes. Assessment and plan Osteoarthritis status post left shoulder arthroplasty patient is a soft sling in place and is scheduled for discharge home with home physical therapy cleared by orthopedics. Patient to discharge on aspirin 325 mg daily for the next 30 days she is also sent in a bowel regimen and Beverly for pain. History of hypertension resumed on amlodipine and atenolol. History of breast cancer with lumpectomy and chemotherapy in 1999 History of anxiety GI prophylaxis DVT prophylaxis Full code Patient medically is cleared for discharge home. Recommended to continue all same home medications. Patient should follow-up with her PCP Dr. Yennifer Robledo she has an appointment made for December 20, 2023 at 2 PM and additionally has an appointment made with orthopedics on December 27 at 9:20 AM. Patient to continue on aspirin 325 mg daily for the next 30 days.. Patient is stable for discharge. The impression and plan of care has been dictated by Pam Rivera Nurse Practitioner as directed. Dr. Kathryn MD I have performed a history and physical examination and medical decision making of this patient, discussed the same with the dictator, and agree with the dictators assessment and plan as written, documented as a scribe. Based on total visit time, I have performed more than 50% of this visit. 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 left sided lumpectomy and lymph nodes removed. rt knee arthroscopy Additional Past Anesthesia/Blood Transfusion Reaction / Comm: sensitive to an esthesia - a little goes a long way. very hard iv start "chemo veins". daughter is sensitive to anesthesia Past Psychological History: No Psychological Hx Reported Smoking Status: Never smoker Past Alcohol Use History: None Reported Past Drug Use History: None Reported - Past Family History Father Family Medical History: Cancer Sister(s) Family Medical History: Cancer, Diabetes Mellitus Mother Family Medical History: Diabetes Mellitus Brother(s) Family Medical History: Deep Vein Thrombosis (DVT) Medications and Allergies Home Medications Medication Instructions Recorded Confirmed Type amLODIPine [Norvasc] 10 mg PO TUTHSA 02/14/23 12/13/23 History atenoloL [Tenormin] 25 mg PO MOWEFR 02/14/23 12/13/23 History Unk Selenium 1 tab PO DAILY 12/07/23 12/13/23 History Unk Chromium Picolinate 1 tab PO DAILY 12/07/23 12/13/23 History Unk Complex B 1 tab PO DAILY 12/07/23 12/13/23 History Unk Kelp 1 tab PO DAILY 12/07/23 12/13/23 History Aspirin 325 mg PO DAILY #30 tab 12/14/23 Rx HYDROcodone/APAP 5-325MG [Beverly 1 - 2 tab PO Q6HR PRN #32 tab 12/14/23 Rx 5-325] Sennosides/Docusate Sodium [Senna 1 each PO DAILY #20 capsule 12/14/23 Rx Plus 8.6-50 mg Softgel] Allergies Allergy/AdvReac Type Severity Reaction Status Date / Time Sulfa (Sulfonamide Allergy Rash/Hives Verified 12/13/23 06:10 Antibiotics) codeine AdvReac Nausea & Verified 12/13/23 06:10 Vomiting Physical Exam Vitals: Vital Signs Temp Pulse Resp BP Pulse Ox 12/14/23 07:33 97.6 F 76 18 145/76 96 12/14/23 01:19 98.0 F 83 20 149/74 98 12/13/23 19:42 97.6 F 76 20 138/70 96 12/13/23 15:30 97.7 F 93 20 149/73 93 L 12/13/23 13:30 80 16 138/63 100 12/13/23 12:30 80 16 125/63 96 12/13/23 12:00 76 16 127/59 97 12/13/23 11:30 74 16 118/60 97 12/13/23 11:15 77 16 117/63 97 12/13/23 11:00 68 16 118/62 99 12/13/23 10:45 78 16 114/63 98 12/13/23 10:30 70 16 129/64 98 12/13/23 10:15 69 16 128/62 98 12/13/23 10:01 72 16 132/66 98 12/13/23 09:46 78 16 142/68 99 12/13/23 09:31 96.8 F L 105 H 16 155/75 98 Intake and Output 12/13/23 12/14/23 12/14/23 22:59 06:59 14:59 Intake Total 350 Balance 350 Intake: Oral 350 Other: Voiding Method Toilet # Voids 1 2 Weight 62.1 kg Results CBC & Chem 7: 12/13/23 16:14 12/13/23 06:22 Labs: Abnormal Lab Results - Last 24 Hours (Table) 12/13/23 Range/Units 16:14 WBC 14.3 H (3.8-10.6) k/uL Neutrophils # 13.2 H (1.3-7.7) k/uL Lymphocytes # 0.6 L (1.0-4.8) k/uL Assessment and Plan Time with Patient: Less than 30
[2023-12-15] MEDS ORDERED: amLODIPine 10 MG TAB PO SCH (09:00)
== END 2023-12-14 12:00 | disposition home or self-care (01) ==
LOC: OR 05:44 → 4SSUR 09:26 → OR 12-14 12:00
PROVIDERS: ATTEND Orthopaedic Surgery
DX: M12.9 Arthropathy, unspecified (principal); I10 Essential (primary) hypertension; Z79.82 Long term (current) use of aspirin; Z85.3 Personal history of malignant neoplasm of breast; Z88.1 Allergy status to other antibiotic agents; Z88.2 Allergy status to sulfonamides; Z88.5 Allergy status to narcotic agent
CPT/HCPCS: 64415; 84132; 85025; 73020; 23472; C1713; C1776; J2250; J1100; J0690 ×2; J2405; J3010

== ENCOUNTER → 2024-03-07 | Outpatient (CLI) | payer MEDICARE, BC ==
[2024-03-07 14:27] LABS: Basophils # (A) 0.09 X 10*3/uL (0.00-0.10); Basophils % (A) 1.3 %; Eosinophils # (A) 0.06 X 10*3/uL (0.04-0.35); Eosinophils % (A) 0.9 %; HCT 45.8 % (37.2-46.3); HGB 14.9 g/dL (12.0-15.0); Lymphocytes # (A) 1.74 X 10*3/uL (0.90-5.00); Lymphocytes % (A) 24.9 %; MCHC 32.5 g/dL (32.0-37.0); MCV 89.1 FL (80.0-97.0); Mean Platelet Volume 10.9 FL (9.5-12.2); Monocytes # (A) 0.72 X 10*3/uL (0.20-1.00); Monocytes % (A) 10.3 %; NRBC Per 100 WBC 0 X 10*3/uL (0.00-0.01); Neutrophils # (A) 4.37 X 10*3/uL (1.80-7.70); Neutrophils % (A) 62.5 %; Platelet Count 243 X 10*3/uL (140-440); RBC 5.14 X 10*6/uL (4.10-5.20); RDW 13.5 % (11.5-14.5); WBC 6.99 X 10*3/uL (4.50-10.00)
== END | disposition home or self-care (01) ==
LOC: LABWHC1 09:56
PROVIDERS: ATTEND Internal Medicine
DX: D72.829 Elevated white blood cell count, unspecified (principal)
CPT/HCPCS: 36415; 85025